=== PATIENT | male | born 1950 | race Caucasian/White ===

== ENCOUNTER 2020-05-02 17:57 | Inpatient (IN) | payer OTHER ==
[~2020-05-02] VITALS: Ht 188 cm; Wt 91.0 kg
[2020-05-02 18:06] VITALS: BP 139/83
[2020-05-02 18:47] LABS: HEMATOCRIT 40.2 % (42.0-52.0); HEMOGLOBIN 13.9 gm/dL (14.0-18.0); MCH 29.7 pg (26.0-34.0); MCHC 34.5 g/dL (28.0-37.0); MCV 86.2 fL (80.0-100.0); MPV 9.2 fl. (7.2-11.1); NUCLEATED RBCS 0 /100WBC; PLATELET COUNT* 215 thou/uL (150-400); RBC 4.66 mil/uL (4.50-6.00); RDW-CV 13.7 % (10.5-14.5); WBC 13.4 thou/uL (4.0-11.0)
[2020-05-02] MEDS ORDERED: ROSUVASTATIN CA10 MG PO (18:48)
[2020-05-02] MEDS ORDERED: BIDIL TABLET1 EACH PO (18:49)
[2020-05-02] MEDS ORDERED: ASA81BEC PO (18:50)
[2020-05-02] MEDS ORDERED: OMEPRAZOLE 20 M20 M1 PO (18:50)
[2020-05-02] MEDS ORDERED: RANOLAZINE ER500 MG PO (18:50)
[2020-05-02] MEDS ORDERED: LISINOPRIL2.5 MG PO (18:51)
[2020-05-02] MEDS ORDERED: LOPRESSOR50 PO (18:51)
[2020-05-02] MEDS ORDERED: METFORMIN HCL500 M3 PO (18:52)
[2020-05-02] MEDS ORDERED: GLIPIZIDE 10 MG10 MG PO (18:53)
[2020-05-02 18:55] LABS: CALCIUM 8.7 mg/dL (8.5-10.1); CREATININE 1.1 mg/dL (0.6-1.3); POTASSIUM 3.8 mmol/L (3.5-5.1)
[2020-05-02 18:56] LABS: APTT 24.3 Seconds (25.0-31.3); INR 1.1; PROTIME 11.3 Seconds (9.20-11.50)
[2020-05-02 18:59] LABS: ALBUMIN 3.9 g/dL (3.4-5.0); TOTAL BILIRUBIN 0.7 mg/dL (<0.1-1.0); TOTAL PROTEIN 7.9 g/dL (6.4-8.2)
[2020-05-02 19:07] LABS: ABSOLUTE LYMPHOCYTES 0.7 thou/uL (0.8-5.3); ABSOLUTE NEUTROPHILS 12.7 thou/uL (1.6-8.1); PLATELET ESTIMATE ADEQUATE
[2020-05-02 19:49] LABS: URINE BILIRUBIN NEGATIVE (Negative); URINE BLOOD TRACE (Negative); URINE CLARITY CLEAR; URINE COLOR YELLOW; URINE GLUCOSE-RANDOM NEGATIVE (Negative); URINE KETONES 1+ (Negative); URINE LEUKOCYTES-REFLEX 2+ (Negative); URINE NITRITE-REFLEX NEGATIVE (Negative); URINE PROTEIN NEGATIVE (Negative); URINE UROBILINOGEN 0.2 E.U./dl (0.2-1.0)
[2020-05-02 19:58] LABS: SQUAMOUS 0-3 Few /LPF (0-3); URINE RBC 0-2 Rare /HPF (0-2); URINE WBC-REFLEX >25 Many /HPF (0-5)
[2020-05-02 19:59] LABS: BACTERIA-REFLEX >30 Many /HPF (None Seen); CASTS None Seen /LPF (None Seen); CRYSTALS None Seen /LPF (None Seen); MUCUS 4-6 Moderate strn/LPF (None Seen)
[2020-05-02 23:35] VITALS: BP 115/61
[2020-05-02 23:42] VITALS: BP 114/60
[2020-05-03 04:00] VITALS: BP 140/71
[2020-05-03 08:00] VITALS: BP 126/62
[2020-05-03 12:36] VITALS: BP 100/70
[2020-05-03 12:38] LABS: ABSOLUTE BASOPHILS 0.1 thou/uL (0.0-0.2); ABSOLUTE EOSINOPHILS 0.1 thou/uL (0.0-0.7); ABSOLUTE LYMPHOCYTES 1.2 thou/uL (0.8-5.3); ABSOLUTE MONOCYTES 1.1 thou/uL (0.0-1.2); ABSOLUTE NEUTROPHILS 13.7 thou/uL (1.6-8.1); BASOPHILS 0.3 %; EOSINOPHILS 0.5 %; HEMATOCRIT 34.7 % (42.0-52.0); LYMPHOCYTES 7.4 %; MCH 30.1 pg (26.0-34.0); MCHC 34.7 g/dL (28.0-37.0); MCV 86.9 fL (80.0-100.0); MONOCYTES 7.1 %; MPV 8.9 fl. (7.2-11.1); NUCLEATED RBCS 0 /100WBC; PLATELET COUNT* 194 thou/uL (150-400); POLYS 84.7 %; RBC 3.99 mil/uL (4.50-6.00); RDW-CV 13.4 % (10.5-14.5); WBC 16.2 thou/uL (4.0-11.0)
--- NOTE | 2020-05-03 12:39 | EKG ---
[place] [address] ELECTROCARDIOGRAM REPORT Name: SARY JUDGE Room: [address] ADM IN [facility]#: [id number] Admission: 05/02/20 Attend Phys: Kit Clark Discharge: Date of : 50 Date of Service: 05/02/20 190 Report #: [id number] THIS REPORT FOR: //name// [facility] ED Test Date: 2020-05-02 Test Time: 19:01:58 Pat Name: SARY JUDGE Department: Room: [facility] Gender: M Assembler Show Motor: ARTIS : 1950 Requested By: Linn Ortiz Order Number: [id number] MD: Mark Noe Measurements Intervals [place] Rate: 98 P: 50 AL: 172 QRS: -8 QRSD: 94 T: -7 QT: 344 QTc: 440 Interpretive Statements Sinus rhythm Probable left atrial enlargement Borderline T abnormalities, inferior leads Compared to ECG 05/30/2009 11:31:20 T-wave abnormality now present Sinus bradycardia no longer present Electronically Signed On 05-03-2020 12:39:03 CDT by Mark Noe [email or web address] <ELECTRONICALLY SIGNED> By: Mark Noe MD, FAC 05/03/20 1239 00 190 Mark Noe MD, FAC /EPI
--- NOTE | 2020-05-03 12:39 | EKG ---
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: MR : 1950 Requested By: Linn Ortiz Order Number: [id number] MD: Mark Noe Measurements Intervals [place] Rate: 89 P: 45 MA: 187 QRS: -8 QRSD: 97 T: 2 QT: 373 QTc: 454 Interpretive Statements Sinus rhythm Borderline T abnormalities, inferior leads Baseline wander in lead(s) I,II,aVR,aVL Compared to ECG 05/30/2009 11:31:20 T-wave abnormality now present Sinus bradycardia no longer present Electronically Signed On 05-03-2020 12:39:22 CDT by Mark Noe [email or web address] <ELECTRONICALLY SIGNED> By: Mark Noe MD, FAC 05/03/20 1239 37 37 Mark Noe MD, [facility] /EPI
[2020-05-03 12:56] LABS: ALBUMIN 2.8 g/dL (3.4-5.0); CALCIUM 7.8 mg/dL (8.5-10.1); CREATININE 1.2 mg/dL (0.6-1.3); MAGNESIUM 1.5 mg/dL (1.8-2.4); POTASSIUM 4.3 mmol/L (3.5-5.1); TOTAL BILIRUBIN 0.4 mg/dL (<0.1-1.0); TOTAL PROTEIN 6.3 g/dL (6.4-8.2)
[2020-05-03 16:23] VITALS: BP 91/35
[2020-05-03 19:40] VITALS: BP 130/58
[2020-05-04] VITALS: BP 148/70
[2020-05-04 04:00] VITALS: BP 124/61
[2020-05-04 04:56] LABS: HEMATOCRIT 33.4 % (42.0-52.0); HEMOGLOBIN 11.6 gm/dL (14.0-18.0); MCH 30.1 pg (26.0-34.0); MCHC 34.6 g/dL (28.0-37.0); MCV 86.9 fL (80.0-100.0); MPV 9.4 fl. (7.2-11.1); RBC 3.84 mil/uL (4.50-6.00); RDW-CV 14.2 % (10.5-14.5); WBC 15.3 thou/uL (4.0-11.0)
[2020-05-04 05:06] LABS: CALCIUM 7.7 mg/dL (8.5-10.1); CREATININE 1.1 mg/dL (0.6-1.3); MAGNESIUM 1.8 mg/dL (1.8-2.4); POTASSIUM 4.1 mmol/L (3.5-5.1)
[2020-05-04 08:00] VITALS: BP 144/97
[2020-05-04 12:00] VITALS: BP 105/67
== END 2020-05-04 14:02 | disposition short-term general hospital (02) | DRG 872 ==
LOC: M.ERS 17:57 → M.TBA-ER 20:41 → M.2W 20:41
PROVIDERS: Internal Medicine; Nurse Practitioner Family; ADMIT Internal Medicine; ATTEND Internal Medicine
DX: A41.51 Sepsis due to Escherichia coli [E. coli] (principal); E87.1 Hypo-osmolality and hyponatremia; N30.00 Acute cystitis without hematuria; I10 Essential (primary) hypertension; Z20.828 Contact with and (suspected) exposure to other viral communicable diseases; B96.20 Unspecified Escherichia coli [E. coli] as the cause of diseases classified elsewhere; K21.9 Gastro-esophageal reflux disease without esophagitis; E11.9 Type 2 diabetes mellitus without complications; Z90.49 Acquired absence of other specified parts of digestive tract; Z91.041 Radiographic dye allergy status